=== PATIENT | male | born 1995 | race Hispanic/Latino ===

== ENCOUNTER 2023-05-11 08:29 | Emergency (ER) | payer OTHER, SELFPAY ==
[2023-05-11 09:02] LABS: SARS-CoV-2 Antigen CONTROL BLUE LINE VIS/BG OK; SARS-CoV-2 Antigen Rapid Res Negative (Negative)
--- NOTE | 2023-05-11 09:21 | ER ---
Nurse's Notes [facility] Name: Braxton Larson Jr Age: 28 yrs Sex: Male : 1995 Arrival Date: 05/11/2023 Time: 08:29 Bed 13 Private MD: Diagnosis: Streptococcal tonsillitis Presentation: 05/10 08:38 Chief complaint: Headache, sinus congestion, sore throat, cough, and body aches since hb yesterday. Coronavirus screen: Client presents with at least one sign or symptom that may indicate coronavirus-19. Standard/surgical mask placed on the client. Provider contacted for isolation considerations. Ebola Screen: No symptoms or risks identified at this time. Initial Sepsis Screen: Does the patient meet any 2 criteria? No. Patient's initial sepsis screen is negative. Does the patient have a suspected source of infection? No. Patient's initial sepsis screen is negative. Risk Assessment: Do you want to hurt yourself or someone else? Patient reports no desire to harm self or others. Onset of symptoms was May 10, 2023. 08:38 Method Of Arrival: Ambulatory 08:38 Acuity: CIRILO 4 hb Triage Assessment: 08:39 General: Appears in no apparent distress. Behavior is calm, cooperative. Pain: Pain hb currently is 5 out of 10 on a pain scale. EENT: Reports nasal congestion sore throat. Neuro: Level of Consciousness is awake, alert, obeys commands, Oriented to person, place, time, situation, Reports headache. Cardiovascular: Patient's skin is warm and dry. Respiratory: Respiratory effort is even, unlabored, Respiratory pattern is regular, symmetrical. Historical: - Allergies: 08:39 No Known Allergies; hb - Home Meds: 08:39 None [Active]; hb - PMHx: 08:39 None; hb - PSHx: 08:39 Knee - Right; hb - Immunization history:: Adult Immunizations up to date. - Infectious Disease History:: Denies. - Social history:: Smoking status: Patient denies any tobacco usage or history of. - Family history:: not pertinent. - Hospitalizations: : No recent hospitalization is reported. Screenin:17 [facility] ED Fall Risk Assessment (Adult) History of falling in the last 3 months, nj1 including since admission No falls in past 3 months (0 pts) Confusion or Disorientation No (0 pts) Intoxicated or Sedated No (0 pts) Impaired Gait No (0 pts) Mobility Assist Device Used No (0 pt) Altered Elimination No (0 pt) Score/Fall Risk Level 0 - 2 = Low Risk Oriented to surroundings, Maintained a safe environment, Hourly rounding (assess needs \T\ fall precautionary measures) done. Abuse screen: Denies threats or abuse. Denies injuries from another. Nutritional screening: No deficits noted. Tuberculosis screening: No symptoms or risk factors identified. Assessment: 09:16 General: Appears in no apparent distress. comfortable, Behavior is calm, cooperative, nj1 appropriate for age. Pain: Denies pain. Neuro: Level of Consciousness is awake, alert, obeys commands, Oriented to person, place, time, situation. Cardiovascular: Patient's skin is warm and dry. Respiratory: Reports cough that is Airway is patent Respiratory effort is even, unlabored. EENT: Reports nasal congestion. 09:28 Reassessment: Patient appears in no apparent distress at this time. Patient is alert, nj1 oriented x 3, equal unlabored respirations, skin warm/dry/pink. Vital Signs: 08:38 BP 136 / 79; Pulse 89; Resp 18; Temp 98.1(O); Pulse Ox 99% on R/A; Weight 113.4 kg; hb Height 6 ft. 4 in. ; Pain 5/10; 09:18 BP 128 / 83; Pulse 90; Resp 18; Pulse Ox 96% ; nj1 09:28 BP 127 / 76; Pulse 86; Resp 18; Temp 97.8(TE); Pulse Ox 99% on R/A; nj1 08:38 Body Mass Index 30.43 (113.40 kg, 193.04 cm) hb 08:38 Pain Scale: Adult hb ED Course: 08:32 Patient arrived in ED. rg4 08:33 Blayne Leigh MD is Attending Physician. rn 08:39 Triage completed. hb 08:39 Arm band placed on. hb 08:41 Client placed on continuous cardiac and pulse oximetry monitoring. NIBP monitoring hb applied. Pulse ox on. NIBP on. 08:42 COVID swab sent to lab. Flu and/or RSV swab sent to lab. Strep swab sent to lab. ll1 08:51 SARS RAPID Sent. ll1 08:51 Flu Sent. ll1 08:51 Strep Sent. ll1 08:52 Fabiana Cox, RN is Primary Nurse. ll1 09:17 Patient has correct armband on for positive identification. Bed in low position. Call nj1 light in reach. Provided Education on: call light, fall precautions. :30 No provider procedures requiring assistance completed. Patient did not have IV access nj1 during this emergency room visit. Administered Medications: No medications were administered Medication: : VIS not applicable for this client. nj1 Outcome: : Discharge ordered by . rn : Discharged to home ambulatory, ia1 Condition: stable :30 Discharge instructions given to patient, Instructed on discharge instructions, follow up and referral plans. medication usage, Demonstrated understanding of instructions, follow-up care, medications, Prescriptions given X 1, :30 Patient left the ED. nj1 Signatures: Blayne Leigh MD MD rn Baxter, Heather, RN Rola Johnson rg4 Fabiana Cox, RN RN 1 Deepti Tang RN RN [facility]
--- NOTE | 2023-05-11 09:21 | EDPHYS ---
Physician Documentation [facility] Name: Braxton Larson Jr Age: 28 yrs Sex: Male : 1995 Arrival Date: 05/11/2023 Time: 08:29 Bed 13 Private MD: ED Physician Blayne Leigh HPI: 05/10 08:42 This 28 yrs old Male presents to ER via Ambulatory with complaints of Sore rn Throat, Stuffy Nose. 08:42 The patient presents with sore throat. The patient describes throat pain as scratchy. rn Onset: The symptoms/episode began/occurred yesterday. Severity of symptoms: At their worst the symptoms were mild, in the emergency department the symptoms are unchanged. Severity of symptoms: At their worst the symptoms were. Modifying factors: The symptoms are alleviated by nothing, the symptoms are aggravated by swallowing, Patient's oral intake status: good. Associated signs and symptoms: Pertinent positives: chills, rhinorrhea, Sore throat. Patient reports began yesterday with sore throat, nasal congestion, runny nose, chills, fatigue, headache. Subjective fever yesterday. No fever today. Just feels tired. Denies shortness of breath. No vomiting or diarrhea.. Historical: - Allergies: 08:39 No Known Allergies; hb - Home Meds: 08:39 None [Active]; hb - PMHx: 08:39 None; hb - PSHx: 08:39 Knee - Right; hb - Immunization history:: Adult Immunizations up to date. - Infectious Disease History:: Denies. - Social history:: Smoking status: Patient denies any tobacco usage or history of. - Family history:: not pertinent. - Hospitalizations: : No recent hospitalization is reported. ROS: 08:42 Constitutional: Negative for fever, chills, and weight loss, Eyes: Negative for injury, rn pain, redness, and discharge, ENT: Positive for runny nose and sinus congestion Neck: Negative for injury, pain, and swelling, Cardiovascular: Negative for chest pain, palpitations, and edema, Respiratory: Negative for shortness of breath, cough, wheezing, and pleuritic chest pain, Abdomen/GI: Negative for abdominal pain, nausea, vomiting, diarrhea, and constipation, Back: Negative for injury and pain, MS/Extremity: Negative for injury and deformity, Skin: Negative for injury, rash, and discoloration, Neuro: Positive for mild headache Exam: 08:42 Constitutional: This is a well developed, well nourished patient who is awake, alert, rn and in no acute distress. Head/Face: Normocephalic, atraumatic. ENT: Mild pharyngeal erythema, no tonsillar exudate. Uvula midline. No stridor Neck: Trachea midline, no thyromegaly or masses palpated, and no cervical lymphadenopathy. Supple, full range of motion without nuchal rigidity, or vertebral point tenderness. No Meningismus. Cardiovascular: Regular rate and rhythm. No pulse deficits. Respiratory: No increased work of breathing, no retractions or nasal flaring. Vital Signs: 08:38 BP 136 / 79; Pulse 89; Resp 18; Temp 98.1(O); Pulse Ox 99% on R/A; Weight 113.4 kg; hb Height 6 ft. 4 in. ; Pain 5/10; 09:18 BP 128 / 83; Pulse 90; Resp 18; Pulse Ox 96% ; nj1 09:28 BP 127 / 76; Pulse 86; Resp 18; Temp 97.8(TE); Pulse Ox 99% on R/A; nj1 08:38 Body Mass Index 30.43 (113.40 kg, 193.04 cm) hb 08:38 Pain Scale: Adult hb MDM: 08:33 Patient medically screened. rn 09:20 Differential diagnosis: group A strep tonsillitis, pharyngitis, tonsillitis, upper rn respiratory infection, viral syndrome. Data reviewed: vital signs, nurses notes, lab test result(s), and as a result, I will discharge patient. Counseling: I had a detailed discussion with the patient and/or guardian regarding the historical points, exam findings, and any diagnostic results supporting the discharge/admit diagnosis, lab results, the need for outpatient follow up, to return to the emergency department if symptoms worsen or persist or if there are any questions or concerns that arise at home. Special discussion: I discussed with the patient/guardian in detail that at this point there is no indication for admission to the hospital. It is understood, however, that if the symptoms persist or worsen the patient needs to return immediately for re-evaluation. 05/10 08:38 Order name: SARS RAPID; Complete Time: 09:18 rn 05/10 08:38 Order name: Flu; Complete Time: 09:18 rn 05/10 08:38 Order name: Strep; Complete Time: 09:18 rn Administered Medications: No medications were administered Disposition Summary: 05/11/23 09:21 Discharge Ordered Notes: Location: Home rn Problem: new rn Symptoms: have improved rn Condition: Stable rn Diagnosis - Streptococcal tonsillitis rn Followup: rn - With: Private Physician - When: As needed - Reason: Recheck today's complaints, Re-evaluation by your physician Discharge Instructions: - Discharge Summary Sheet rn - Strep Throat, Adult rn Forms: - Medication Reconciliation Form rn - Thank You Letter rn - Antibiotic transactional attorney - Prescription Opioid Use rn - Patient Portal Instructions rn - Leadership Thank You Letter rn Prescriptions: - Augmentin 875-125 mg Oral Tablet - take 1 tablet ORAL route every 12 hours for 10 days; 20 tablet; Refills: 0, rn Product Selection Permitted Signatures: Dispatcher [employer] EDMS Blayne Leigh MD MD rn Baxter, Heather, RN RN Corrections: (The following items were deleted from the chart) 08:39 08:39 SARS-COV-2 Antigen Rapid+I.LAB.BRZ ordered. EDMS EDMS 08:39 08:39 Influenza Screen (A \T\ B)+BA.LAB.BRZ ordered. EDMS EDMS 08:39 08:39 Group A Streptococcus Rapid Sc+BA.LAB.BRZ ordered. EDMS EDMS
[2023-05-11 10:37] VITALS: BP 127/76; TEMP 97.8; O2SAT 99
== END 2023-05-11 09:30 | disposition home or self-care (01) ==
LOC: ER 08:29
DX: J03.00 Acute streptococcal tonsillitis, unspecified (principal); Z11.52 Encounter for screening for COVID-19
CPT/HCPCS: 36415; 87081; 87804; 87811; 99284